=== PATIENT | female | born 1990 | race Caucasian/White ===

== ENCOUNTER 2016-09-15 20:28 | Emergency (ER) | payer MEDICARE, MEDICAID ==
[2016-09-15 21:23] VITALS: BP 128/89
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
== END 2016-09-16 | disposition home or self-care (01) ==
LOC: UCEAST 20:28
DX: L91.0 Hypertrophic scar (principal); J45.909 Unspecified asthma, uncomplicated
CPT/HCPCS: 99212; G0463

== ENCOUNTER → 2016-12-27 13:40 | Emergency (ER) | payer MEDICAID, MEDICARE, OTHER ==
[~2016-12-27 13:40] MED LIST: Acetaminophen TAB* 325 MG PO ONE; Azithromycin TAB* 250 MG PO ONE; Ibuprofen TAB* 600 MG ONE; Ibuprofen TAB* 600 MG PO ONE; Lidocaine 1%* 5 ML VIAL ONE; Ondansetron ODT TAB* 4 MG PO ONE; Raltegravir* 400 MG TAB PO ONE; Tenofovir/Emtricitabine(*) TAB PO ONE; cefTRIAXone VIAL(*) 250 MG VIAL IM ONE
[2016-12-27 16:48] LABS: Manual Entry Verification HAN0055; UR Preg Internal Control QC Line Present
[2016-12-27 16:54] LABS: Urine Bacteria Absent (Absent); Urine Bilirubin Negative (Negative); Urine Glucose Negative (Negative); Urine Nitrite Negative (Negative)
[2016-12-27 16:59] LABS: Hematocrit 44 % (35-47); Hemoglobin 14.4 g/dl (12.0-16.0); Mean Corpuscular HGB Conc 33 g/dl (31-36); Mean Corpuscular Hemoglobin 28 pg (27-31); Mean Corpuscular Volume 84 fL (80-97); Mean Platelet Volume 8 um3 (7.4-10.4); Red Blood Count 5.24 10^6/ul (4.0-5.4); Red Cell Distribution Width 14 % (10.5-15); White Blood Count 10.6 10^3/ul (3.5-10.8)
[2016-12-27 17:15] LABS: Albumin 4.7 g/dL (3.2-5.2); BUN/Creatinine Ratio 17.1 (8-20); Calcium 9.9 mg/dL (8.6-10.3); EGFR African American 130.1 (>60); EGFR Non-African American 101.1 (>60); Potassium 3.7 mmol/L (3.5-5.0); Total Bilirubin 0.7 mg/dL (0.2-1.0); Total Protein 7.7 g/dL (6.4-8.9)
--- NOTE | 2016-12-27 18:42 | RAD ---
INDICATION: Right shoulder injury. TECHNIQUE: 4 views of the right shoulder were obtained. FINDINGS: The bones are in normal alignment. No fracture is seen. Joint spaces appear maintained. IMPRESSION: NO EVIDENCE OF FRACTURE.
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
[2016-12-27 21:29] LABS: Hematocrit 44 % (35-47); Hemoglobin 14.2 g/dl (12.0-16.0); Mean Corpuscular HGB Conc 32 g/dl (31-36); Mean Corpuscular Hemoglobin 27 pg (27-31); Mean Corpuscular Volume 83 fL (80-97); Mean Platelet Volume 8 um3 (7.4-10.4); Red Blood Count 5.28 10^6/ul (4.0-5.4); Red Cell Distribution Width 14 % (10.5-15); White Blood Count 11.7 10^3/ul (3.5-10.8)
[2016-12-27 21:30] LABS: Add Diff/Slide Review? Manual Diff Added; Comments Flag Yes
[2016-12-27 22:14] LABS: Albumin 4.7 g/dL (3.2-5.2); BUN/Creatinine Ratio 16.1 (8-20); Calcium 10.1 mg/dL (8.6-10.3); EGFR African American 101.2 (>60); EGFR Non-African American 78.7 (>60); Potassium 3.8 mmol/L (3.5-5.0); Total Bilirubin 0.7 mg/dL (0.2-1.0); Total Protein 7.7 g/dL (6.4-8.9)
[2016-12-27 22:44] LABS: Add Path Review? YES; Immature Granulocytes 8 % (0-9); Neutrophil % 80 % (38-83)
[2016-12-27 22:45] LABS: RBC Morphology Normal (Normal)
[2016-12-27 23:13] VITALS: BP 101/12
== END | disposition home or self-care (01) ==
LOC: ED 13:40
DX: T76.21XA Adult sexual abuse, suspected, initial encounter (principal); R50.9 Fever, unspecified; R11.10 Vomiting, unspecified; R30.0 Dysuria; R51 Headache; M25.512 Pain in left shoulder
CPT/HCPCS: 36415; 72170; 80053; 81003; 81015; 81025; 85025; 85060; 86703; 86706; 86803; 87040; 87086; 87340; 99285; A9270-GY; J0696

== ENCOUNTER 2019-03-01 15:39 | Emergency (ER) | payer MEDICARE, MEDICAID ==
--- NOTE | 2019-03-01 16:03 | PN ---
Progress Note - Progress Note Date of Service: 03/01/19 Note: Patient presents with diffuse abdominal pain throughout the lower abdomen. Denies UA sxs. Endorses mid back pain. Sxs began this morning and have remained constant. Mild nausea, no vomiting, diarrhea or constipation but feels bloated. Pain is rated 3/10. Patient states upon movement her pain is " a 12." Ambulating well at triage. Non diaphoretic.
[2019-03-01 17:06] LABS: ABS Basophils 0.1 10^3/ul (0-0.2); ABS Eosinophils 0.2 10^3/ul (0-0.6); ABS Lymphocytes 2.9 10^3/ul (1.0-4.8); ABS Monocytes 0.5 10^3/ul (0-0.8); ABS Neutrophils 7.1 10^3/ul (1.5-7.7); Hematocrit 46 % (35-47); Hemoglobin 15.4 g/dL (12.0-16.0); Lymphocyte % 26.9 %; Mean Corpuscular HGB Conc 34 g/dL (31-36); Mean Corpuscular Hemoglobin 28 pg (27-31); Mean Corpuscular Volume 84 fL (80-97); Mean Platelet Volume 7.2 fL (7.4-10.4); Platelet Count 460 10^3/uL (150-450); Red Blood Count 5.47 10^6 /uL (3.70-4.87); Red Cell Distribution Width 13 % (10-15); White Blood Count 10.8 10^3/uL (3.5-10.8)
[2019-03-01 17:22] LABS: ALT 24 U/L (7-52); AST 15 U/L (13-39); Albumin 5.1 g/dL (3.2-5.2); Albumin/Globulin Ratio 1.8 (1-3); Alkaline Phosphatase 93 U/L (34-104); Anion Gap 8 mmol/L (2-11); BUN/Creatinine Ratio 10.8 (8-20); Blood Urea Nitrogen 11 mg/dL (6-24); C Reactive Protein < 1.00 mg/L (<8.01); CO2 Carbon Dioxide 26 mmol/L (22-32); Calcium 10.9 mg/dL (8.6-10.3); Chloride 106 mmol/L (101-111); EGFR African American 78.1 (>60); EGFR Non-African American 64.5 (>60); Globulin 2.9 g/dL (2-4); Glucose 92 mg/dL (70-100); Potassium 3.9 mmol/L (3.5-5.0); Sodium 140 mmol/L (135-145)
[2019-03-01 17:25] LABS: HCG Pregnancy < 0.60 mIU/mL
[2019-03-01 18:28] LABS: Urine Appearance Turbid; Urine Bacteria 2+ (Absent); Urine Bilirubin Negative (Negative); Urine Blood Negative (Negative); Urine Color Amber; Urine Glucose Negative (Negative); Urine Ketones Negative (Negative); Urine Nitrite Negative (Negative); Urine Protein Negative (Negative); Urine Red Blood Cell 3+(>10/hpf) (Absent); Urine Specific Gravity 1.027 (1.010-1.030); Urine Squamous Epithelial Cell Present (Absent); Urine Urobilinogen Negative (Negative); Urine White Blood Cell 1+(6-10/hpf) (Absent)
[2019-03-01] MEDS ORDERED: Ondansetron ODT TAB* 4 MG PO ONE (18:39)
[2019-03-01] MEDS ORDERED: Ibuprofen TAB* 600 MG PO ONE (21:48)
--- NOTE | 2019-03-01 21:48 | ED ---
Abdominal Pain/Female - HPI Summary HPI Summary: Patient complains of bilateral lower abdominal pain starting at 9 AM this morning area pain described as new onset, intermittent, worse with standing, at worst 10/10, lasts 1-2 minutes at a time. Current pain 3/10. Associated mild nausea. Denies fever, cough, sore throat, CP, SOB, diarrhea, change in urine, change in BM, vaginal symptoms. Medical history is none. Abdominal surgical history is none. History of IUD, LMP years ago. - History of Current Complaint Chief Complaint: EDAbdPain Stated Complaint: ABD PAIN PER PT Time Seen by Provider: 03/01/19 18:25 Hx Obtained From: Patient, Family/Die Turner Hx Last Menstrual Period: Mirena Onset/Duration: Sudden Onset, Lasting Hours Timing: Minutes Severity Initially: Severe Severity Currently: Mild Pain Intensity: 3 Pain Scale Used: 0-10 Numeric Location: Discrete At: RLQ, Discrete At: LLQ, Suprapubic Radiates: No Character: Cramping Aggravating Factor(s): Nothing Alleviating Factor(s): Nothing Associated Signs and Symptoms: Positive: Nausea Allergies/Adverse Reactions: Allergies Allergy/AdvReac Type Severity Reaction Status Date / Time amoxicillin Allergy Vomiting Verified 12/30/18 11:13 Home Medications: Home Medications QUEtiapine TAB* [Seroquel 25 MG TAB*] 25 mg PO DAILY 03/01/19 [History Confirmed 03/01/19] hydrOXYzine HCL TAB* [Atarax TAB 50 MG *] 50 mg PO BEDTIME 03/01/19 [History Confirmed 03/01/19] PMH/Surg Hx/FS Hx/Imm Hx Endocrine/Hematology History: Denies: Hx Anticoagulant Therapy, Hx Diabetes, Hx Thyroid Disease Cardiovascular History: Denies: Hx Congestive Heart Failure, Hx Deep Vein Thrombosis, Hx Hypertension , Hx Myocardial Infarction, Hx Pacemaker/ICD Respiratory History: Reports: Hx Asthma, Other Respiratory Problems/Disorders Denies: Hx Chronic Obstructive Pulmonary Disease (COPD), Hx Lung Cancer, Hx Pneumonia, Hx Pulmonary Embolism GI History: Denies: Hx Gall Bladder Disease, Hx Gastrointestinal Bleed, Hx Ulcer, Hx Urosepsis History: Denies: Hx Kidney Stones, Hx Renal Disease Sensory History: Reports: Hx Contacts or Glasses - GLASSES Denies: Hx Hearing Aid Opthamlomology History: Reports: Hx Contacts or Glasses - GLASSES Neurological History: Denies: Hx Dementia, Hx Migraine, Hx Seizures, Hx Transient Ischemic Attacks (TIA) Psychiatric History: Reports: Hx Depression - CONTROL WITH MED Denies: Hx Anxiety, Hx Eating Disorder, Hx Panic Disorder, Hx Schizophrenia, Hx Bipolar Disorder, Hx of Violent Episodes Against Others - Surgical History Surgery Procedure, Year, and Place: 08/29/15 deviated septum repair Infectious Disease History: No Infectious Disease History: Denies: Hx Hepatitis, Hx Human Immunodeficiency Virus (HIV), History Other Infectious Disease, Traveled Outside the [place] in Last 30 Days - Family History Known Family History: Positive: Hypertension, Diabetes Negative: Cardiac Disease - Social History Alcohol Use: None Substance Use Type: Reports: None Smoking Status (MU): Never Smoked Tobacco Review of Systems Constitutional: Negative Eyes: Negative ENT: Negative Cardiovascular: Negative Respiratory: Negative Positive: Abdominal Pain, Nausea Genitourinary: Negative Musculoskeletal: Negative Skin: Negative Neurological: Negative Psychological: Normal All Other Systems Reviewed And Are Negative: Yes Physical Exam - Summary Physical Exam Summary: Mildly tender in lower quadrants of abdomen. Upper abdominal exam unremarkable. Triage Information Reviewed: Yes Vital Signs On Initial Exam: Initial Vitals Temp Pulse Resp BP Pulse Ox 98.4 F 104 18 151/101 100 03/01/19 16:00 03/01/19 16:00 03/01/19 16:00 03/01/19 16:00 03/01/19 16:00 Vital Signs Reviewed: Yes Appearance: Positive: Well-Appearing Skin: Positive: Warm Head/Face: Positive: Normal Head/Face Inspection Eyes: Positive: Normal Neck: Positive: Supple Respiratory/Lung Sounds: Positive: Clear to Auscultation Cardiovascular: Positive: Normal Abdomen Description: Positive: Other: Musculoskeletal: Positive: Normal Neurological: Positive: Normal Psychiatric: Positive: Normal AVPU Assessment: Alert - [place] Coma Scale Best Eye Response: 4 - Spontaneous Best Motor Response: 6 - Obeys Commands Best Verbal Response: 5 - Oriented Coma Scale Total: 15 Diagnostics - Vital Signs Vital Signs Temp Pulse Resp BP Pulse Ox 03/01/19 16:00 98.4 F 104 18 151/101 100 - Laboratory Lab Results: Lab Results 03/01/19 03/01/19 03/01/19 Range/Units 16:45 16:45 18:15 WBC 10.8 (3.5-10.8) 10^3/uL RBC 5.47 H (3.70-4.87) 10^6 /uL Hgb 15.4 (12.0-16.0) g/dL Hct 46 (35-47) % MCV 84 (80-97) fL MCH 28 (27-31) pg MCHC 34 (31-36) g/dL RDW 13 (10-15) % Plt Count 460 H (150-450) 10^3/uL MPV 7.2 L (7.4-10.4) fL Neut % (Auto) 65.7 % Lymph % (Auto) 26.9 % Collier % (Auto) 4.6 % Eos % (Auto) 2.0 % Baso % (Auto) 0.8 % Absolute Neuts (auto) 7.1 (1.5-7.7) 10^3/ul Absolute Lymphs (auto) 2.9 (1.0-4.8) 10^3/ul Absolute Monos (auto) 0.5 (0-0.8) 10^3/ul Absolute Eos (auto) 0.2 (0-0.6) 10^3/ul Absolute Basos (auto) 0.1 (0-0.2) 10^3/ul Absolute Nucleated RBC 0.0 10^3/ul Nucleated RBC % 0.0 Sodium 140 (135-145) mmol/L Potassium 3.9 (3.5-5.0) mmol/L Chloride 106 (101-111) mmol/L Carbon Dioxide 26 (22-32) mmol/L Anion Gap 8 (2-11) mmol/L BUN 11 (6-24) mg/dL Creatinine 1.02 H (0.51-0.95) mg/dL Est GFR ( Amer) 78.1 (>60) Est GFR (Non-Af Amer) 64.5 (>60) BUN/Creatinine Ratio 10.8 (8-20) Glucose 92 (70-100) mg/dL Calcium 10.9 H (8.6-10.3) mg/dL Total Bilirubin 0.40 (0.2-1.0) mg/dL AST 15 (13-39) U/L ALT 24 (7-52) U/L Alkaline Phosphatase 93 (34-104) U/L C-Reactive Protein < 1.00 (<8.01) mg/L Total Protein 8.0 (6.4-8.9) g/dL Albumin 5.1 (3.2-5.2) g/dL Globulin 2.9 (2-4) g/dL Albumin/Globulin Ratio 1.8 (1-3) Beta HCG, Quant < 0.60 mIU/mL Urine Color [place] Urine Appearance Turbid Urine pH 5.0 (5-9) Ur Specific [place] 1.027 (1.010-1.030) Urine Protein Negative (Negative) Urine Ketones Negative (Negative) Urine Blood Negative (Negative) Urine Nitrate Negative (Negative) Urine Bilirubin Negative (Negative) Urine Urobilinogen Negative (Negative) Ur Leukocyte Esterase Trace A (Negative) Urine WBC (Auto) 1+(6-10/hpf) A (Absent) Urine RBC (Auto) 3+(>10/hpf) A (Absent) Ur Squamous Epith Cells Present A (Absent) Urine Bacteria 2+ A (Absent) Urine Glucose Negative (Negative) Result Diagrams: 03/01/19 16:45 03/01/19 16:45 Lab Statement: Any lab studies that have been ordered have been reviewed, and results considered in the medical decision making process. Abdominal Pain Fem Course/Dx - Course Course Of Treatment: Patient complains of bilateral lower abdominal pain starting at 9 AM this morning area pain described as new onset, intermittent, worse with standing, at worst 10/10, lasts 1-2 minutes at a time. Current pain 3/10. Associated mild nausea. Denies fever, cough, sore throat, CP, SOB, diarrhea, change in urine, change in BM, vaginal symptoms. Medical history is none. Abdominal surgical history is none. History of IUD, LMP years ago. Vital signs within normal limits. Labs unremarkable. Transvaginal ultrasound positive for right ovarian cyst. KUB unremarkable. Urine pending cultures. - Diagnoses Provider Diagnoses: Ovarian cyst Discharge - Sign-Out/Discharge Documenting (check all that apply): Patient Departure Patient Received Moderate/Deep Sedation with Procedure: No - Discharge Plan Condition: Stable Disposition: HOME Prescriptions: Ondansetron ODT TAB* [Zofran 4 MG Odt TAB*] 4 mg PO Q8H PRN 4 Days #14 tab.odt PRN Reason: Nausea Patient Education Materials: Ovarian Cyst (ED) Referrals: Darcie Ramsey DO [Primary Care Provider] - Thai Rios MD [Medical Doctor] - Additional Instructions: Alternate ibuprofen 600 mg with Tylenol 650 mg every 3 hours for pain over the next 3 days. Take Zofran as directed for nausea. Follow-up with [facility] Dr. Rios if pain persists more than 1 week. Return to the ED for any new or worsening symptoms. - Billing Disposition and Condition Condition: STABLE Disposition: Home - Attestation Statements Provider Attestation: I was available for consultation for this patient. I did not evaluate the patient or participate in any medical decision making or disposition decisions unless I am specifically named in the chart as having consulted on the patient. If I have consulted on the patient, please see my own ED note on the patient encounter. Eligio Greene MD
[2019-03-01 22:06] VITALS: BP 143/103
== END 2019-03-01 22:05 | disposition home or self-care (01) ==
LOC: ED 15:39
DX: N83.209 Unspecified ovarian cyst, unspecified side (principal); J45.909 Unspecified asthma, uncomplicated; F32.9 Major depressive disorder, single episode, unspecified; Z88.0 Allergy status to penicillin; Z79.899 Other long term (current) drug therapy
CPT/HCPCS: 36415; 74018; 76830; 80053; 81003; 81015; 84702; 85025; 86140; 87086; 99283; A9270-GY